=== PATIENT | female | born 1980 | race African-American/Black ===

== ENCOUNTER 2022-01-30 21:43 | Emergency (ER) | payer OTHER ==
[2022-01-30 22:32] LABS: HEMATOCRIT 38.1 % (32.4-45.2); HEMOGLOBIN 13.2 G/dL (10.7-15.3); MCH 29.6 pg (25.7-33.7); MCHC 34.7 g/dl (32.0-36.0); MEAN CELL VOLUME 85.2 fl (80-96); MEAN PLT VOLUME 6.6 fl (7.5-11.1); RBC 4.47 10^6/uL (3.60-5.2); RDW 14.9 % (11.6-15.6); WHITE BLOOD COUNT 13.2 10^3/uL (4.0-10.8)
[2022-01-30 22:41] LABS: INR 0.97 (0.83-1.09); PROTHROMBIN TIME (PATIENT) 11.2 SEC (9.7-13.0)
[2022-01-30 22:43] LABS: ACTIVATED PTT 26.4 SECONDS (25.2-36.5)
[2022-01-30 22:50] LABS: ALBUMIN 3.7 g/dl (3.4-5.0); BILIRUBIN,TOTAL 0.5 mg/dl (0.2-1); CALCIUM 9.1 mg/dl (8.5-10); CREATININE 0.9 mg/dl (0.55-1.3); TOT PROT 7.3 g/dl (6.4-8.2)
[2022-01-30 22:59] LABS: PLATELET ESTIMATE ADEQUATE
== END 2022-01-30 23:09 | disposition home or self-care (01) ==
LOC: FER 21:43
DX: D69.0 Allergic purpura (principal)
CPT/HCPCS: 36415; 80053; 85025; 85610; 85730; 99281-25

== ENCOUNTER 2022-03-12 04:14 | Day surgery (SDC) | payer OTHER ==
[2022-03-11 15:03] VITALS: BMI 29.2
[2022-03-12 07:21] VITALS: RESP 18
[2022-03-12] MEDS ORDERED: LIDOCAINE HCL 1%, 10 MG/ML (20ML VIAL) ONE (08:38)
[2022-03-12] MEDS ORDERED: LIDOCAINE HCL 1%, 10 MG/ML (20ML VIAL) INF ONE ×2 (08:55→09:18)
[2022-03-12] MEDS ORDERED: SUCCINYLCHOLINE CHLORIDE 200 MG/10 ML SYRINGE ONE (09:01)
[2022-03-12] MEDS ORDERED: MIDAZOLAM HCL 2 MG/2 ML SINGLE DOSE VIAL ONE (09:01)
[2022-03-12] MEDS ORDERED: PROPOFOL 20 ML ONE (09:01)
[2022-03-12] MEDS ORDERED: ceFAZolin SODIUM 1 GM VIAL ONE (09:10)
[2022-03-12] MEDS ORDERED: DEXAMETHASONE SOD PHOSPHATE 4 MG/1 ML VIAL ONE (09:12)
[2022-03-12] MEDS ORDERED: ONDANSETRON 4 MG/2 ML VIAL ONE (09:12)
[2022-03-12] MEDS ORDERED: ceFAZolin 2 GRAM PREMIX BAG IVPB ONE (09:15)
[2022-03-12] MEDS ORDERED: ONDANSETRON 4 MG/2 ML VIAL IVPUSH PRN (09:48)
[2022-03-12] MEDS ORDERED: oxyCODONE HCL 5 MG TABLET PO PRN (09:48)
[2022-03-12] MEDS ORDERED: LACTATED RINGERS SOLUTION 1,000 ML IV SCH (10:00)
[2022-03-12 12:14] VITALS: BP 133/83; PULSE 78; TEMP 97.1
== END 2022-03-12 12:00 | disposition home or self-care (01) ==
LOC: JASU-SURG 04:14
PROVIDERS: ATTEND Surgery Vascular Surgery
PROC: 0KBQ0ZX Excision of Right Upper Leg Muscle, Open Approach, Diagnostic (ICD-10-PCS; principal; 2022-03-12 09:00)
DX: M62.81 Muscle weakness (generalized) (principal)
CPT/HCPCS: 81025; 88300-TC

== ENCOUNTER 2022-12-26 12:18 | Day surgery (SDC) | payer OTHER ==
[2022-12-26] MEDS ORDERED: IRON SUCROSE COMPLEX 200 MG in SODIUM CHLORIDE 100 ML IVPB SCH (13:00)
[2022-12-26 14:07] VITALS: BP 128/75; PULSE 75; RESP 18; TEMP 98.8
== END 2022-12-26 13:40 | disposition home or self-care (01) ==
LOC: FINFUSION 12:18 → FM/S 12:44 → FINFUSION 13:40
PROVIDERS: ATTEND Family Medicine
PROC: 3E033GC Introduction of Other Therapeutic Substance into Peripheral Vein, Percutaneous Approach (ICD-10-PCS; principal; 2022-12-26)
DX: D50.9 Iron deficiency anemia, unspecified (principal)
CPT/HCPCS: 96365

== ENCOUNTER 2023-01-02 12:33 | Day surgery (SDC) | payer OTHER ==
[2023-01-02] MEDS ORDERED: IRON SUCROSE COMPLEX 200 MG in SODIUM CHLORIDE 100 ML IVPB SCH (13:15)
[2023-01-02 15:21] VITALS: BP 109/64; PULSE 69; RESP 16; TEMP 98
== END 2023-01-02 15:21 | disposition home or self-care (01) ==
LOC: FINFUSION 12:33 → FM/S 12:47 → FINFUSION 15:21
PROVIDERS: ATTEND Family Medicine
PROC: 3E033GC Introduction of Other Therapeutic Substance into Peripheral Vein, Percutaneous Approach (ICD-10-PCS; principal; 2023-01-02)
DX: D50.9 Iron deficiency anemia, unspecified (principal)
CPT/HCPCS: 96365